=== PATIENT | male | born 1940 | race Caucasian/White ===

== ENCOUNTER → 2023-10-22 11:01 | Outpatient (REF) | payer MEDICARE, SELFPAY | LOC: RCS 11:01 | PROVIDERS: ATTENDING PHYSICIAN Internal Medicine Cardiovascular Disease; FAMILY PHYSICIAN Family Medicine | DX: I48.0 Paroxysmal atrial fibrillation (principal); I77.810 Thoracic aortic ectasia | CPT/HCPCS: 93306 ==

== ENCOUNTER → 2024-11-03 14:26 | Outpatient (REF) | payer MEDICARE, SELFPAY | LOC: RCS 14:26 | PROVIDERS: ATTENDING PHYSICIAN Internal Medicine Cardiovascular Disease; FAMILY PHYSICIAN Family Medicine | DX: I48.0 Paroxysmal atrial fibrillation (principal); I77.810 Thoracic aortic ectasia | CPT/HCPCS: 93306 ==